=== PATIENT | male | born 1965 | race Caucasian/White ===

== ENCOUNTER 2018-10-07 14:09 | Inpatient (IN) | payer OTHER ==
[2018-10-07] VITALS (15 sets, daily range): BP systolic 97–130; BP diastolic 57–79
[~2018-10-07] VITALS: Ht 170.2 cm; Wt 84.4 kg
[2018-10-07] MEDS ORDERED: TOPROL XL25 MG PO (14:16)
[2018-10-07] MEDS ORDERED: IBU800 MG PO (14:16)
[2018-10-07] MEDS ORDERED: [UNRECOGNIZED DRUG - REMARK] (14:17)
[2018-10-07] MEDS ORDERED: MOBIC15 MG PO (14:17)
[2018-10-07 14:49] LABS: ABSOLUTE BASOPHILS 0.1 thou/uL (0.0-0.2); ABSOLUTE EOSINOPHILS 0.4 thou/uL (0.0-0.7); ABSOLUTE LYMPHOCYTES 2.6 thou/uL (0.8-5.3); ABSOLUTE MONOCYTES 0.6 thou/uL (0.0-1.2); ABSOLUTE NEUTROPHILS 5.4 thou/uL (1.6-8.1); BASOPHILS 1.1 %; EOSINOPHILS 4.5 %; HEMATOCRIT 46.7 % (42.0-52.0); MCH 31.4 pg (26.0-34.0); MCHC 34.3 g/dL (28.0-37.0); MCV 91.6 fL (80.0-100.0); MONOCYTES 6.6 %; MPV 8.8 fl. (7.2-11.1); NUCLEATED RBCS 0 /100WBC; PLATELET COUNT* 239 thou/uL (150-400); POLYS 58.8 %; RDW-CV 14.2 % (10.5-14.5); WBC 9.1 thou/uL (4.0-11.0)
[2018-10-07 14:53] LABS: ANION GAP 8 mmol/L (7-16); BUN 12 mg/dL (7-18); CALCIUM 8.8 mg/dL (8.5-10.1); CHLORIDE 103 mmol/L (98-107); CO2 26 mmol/L (21-32); CREATININE 1.1 mg/dL (0.6-1.3); GLUCOSE 117 mg/dL (70-99); POTASSIUM 3.8 mmol/L (3.5-5.1); SODIUM 137 mmol/L (136-145)
[2018-10-07 15:03] LABS: ALBUMIN 3.5 g/dL (3.4-5.0); ALKALINE PHOSPHATASE 108 U/L (46-116); SGOT 14 U/L (15-37); SGPT 27 U/L (30-65); TOTAL BILIRUBIN 0.2 mg/dL (<0.1-1.0); TOTAL PROTEIN 6.9 g/dL (6.4-8.2); TROPONIN-I LEVEL <0.06 ng/mL (<0.06)
--- NOTE | 2018-10-07 15:24 | EKG ---
[place] [address] ELECTROCARDIOGRAM REPORT Name: DOLORES ALEXANDER SR Room: [facility]#: [id number] Admission: 10/07/18 Attend Phys: Discharge: Date of : 61 Report #: [id number] THIS REPORT FOR: //name// [facility] ED Test Date: 2018-10-07 Test Time: 14:15:25 Pat Name: DOLORES ALEXANDER Department: Room: Gender: M Dub Room Engineer: MIO : 1965 Requested By: Marlin Jones Order Number: [id number] MD: Scot Figueroa Measurements Intervals [place] Rate: 78 P: 27 [place]: 188 QRS: 27 QRSD: 91 T: 41 QT: 367 QTc: 419 Interpretive Statements Sinus rhythm Compared to ECG 01/13/2007 07:59:23 No significant changes Electronically Signed On 10-07-2018 15:24:41 CDT by Scot Figueroa [email or web address] <ELECTRONICALLY SIGNED> By: Scot Figueroa MD, [facility] 10/07/18 1524 1415 1415 Scot Figueroa MD, [facility] /EPI
[2018-10-07 15:36] LABS: APTT 27.9 Seconds (25.0-31.3); INR 1.1; PROTIME 10.9 Seconds (9.20-11.50)
[2018-10-08] VITALS (13 sets, daily range): BP systolic 102–134; BP diastolic 65–85
[2018-10-08 03:42] LABS: HEMATOCRIT 45.9 % (42.0-52.0); HEMOGLOBIN 15.3 gm/dL (14.0-18.0); MCH 30.8 pg (26.0-34.0); MCHC 33.4 g/dL (28.0-37.0); MCV 92.1 fL (80.0-100.0); MPV 8.5 fl. (7.2-11.1); RBC 4.98 mil/uL (4.50-6.00); RDW-CV 14.1 % (10.5-14.5); WBC 12.1 thou/uL (4.0-11.0)
[2018-10-08 03:59] LABS: ANION GAP 12 mmol/L (7-16); BUN 12 mg/dL (7-18); CALCIUM 8.5 mg/dL (8.5-10.1); CHLORIDE 105 mmol/L (98-107); CHOLESTEROL 189 mg/dL (<200); CO2 24 mmol/L (21-32); CREATININE 1.1 mg/dL (0.6-1.3); GLUCOSE 112 mg/dL (70-99); HDL CHOLESTEROL 25 mg/dL (>40); LDL CHOLESTEROL 107 mg/dL (<100); MAGNESIUM 2.2 mg/dL (1.8-2.4); POTASSIUM 3.7 mmol/L (3.5-5.1); SODIUM 141 mmol/L (136-145); TC:HDL 7.6 Ratio (Not establshd); TRIGLYCERIDE 289 mg/dL (<150); VLDL 58 mg/dL (<40)
[2018-10-08 04:01] LABS: SERUM ASSESSMENT CLEAR
[2018-10-08 04:06] LABS: CK-MB MASS 7.6 ng/mL (<0.5-3.6)
[2018-10-08 04:11] LABS: TROPONIN-I LEVEL 1.5 ng/mL (<0.06)
[2018-10-08] MEDS ORDERED: LIPITOR40 MG PO (07:24)
[2018-10-08] MEDS ORDERED: ASPIR 8181 MG PO (07:24)
[2018-10-08] MEDS ORDERED: BRILINTA90 MG PO (07:24)
[2018-10-08] MEDS ORDERED: XANAX1 MG PO ×2 (08:51→11:06)
--- NOTE | 2018-10-08 09:16 | CARD ---
[address] [address] CARDIAC CATH REPORT Name: DOLORES ALEXANDER SR Room: [address] IN [facility]#: [id number] Admission: 10/07/18 Attend Phys: Sukhwinder Sanchez MD Discharge: Date of : 61 Report #: [id number] THIS REPORT FOR: //name// APPROVED REPORT Study performed: 10/07/2018 17:49:58 Patient Details Patient Status: ED Room #: The patient is a 52 year-old male Event Personnel Nicole Santiago Schmalzbach, Brittany RN RN, Eddie Briseno (R) Pattie Ramos Jin Production Graphic Designer Procedures Performed Left Heart Cath w/or w/o Coronaries [id number] [facility] Art Access - R femoral artery* BYRON Revasc AMI Total/Sub Single LAD C9606 AMIREVSING PTCA Single Vessel DIAG [id number] PCISINGLE , Aortogram Indication STEMI (>0 to less than or equal to 6 hours), Dyspnea, Chest pain Risk Factors Hypercholesterolemia, Coronary Artery DiseaseHypertension, Tobacco History () Previous Procedures/Diagnoses Previous PCI Procedure Narrative The patient was brought emergently to the Cardiac Catheterization Laboratory and was prepped and draped in a sterile manner. The right femoral was infiltrated with 2% Lidocaine subcutaneous anesthesia. A 6fr Ultimum Sheath sheath was inserted into the right femoral artery. Coronary angiography was performed using coronary diagnostic catheters. The right coronary system was accessed and visualized with a Diagnostic catheter. The left coronary system was accessed and visualized with a Diagnostic catheter. The left ventricle was accessed and visualized with a Diagnostic catheter. Left ventricular/Aortic Valve gradient assessed via catheter pullback. Closure device was deployed with a 6 Fr Mynx 6Fr/7[place] [address] CARDIAC CATH REPORT Name: DOLORES ALEXANDER SR Room: [address]#: [id number] Admission: 10/07/18 Attend Phys: Sukhwinder Sanchez MD Discharge: Date of : 61 Report #: [id number] tolerated the procedure well and there were no complications associated with the procedure. There was no hematoma. Intraoperative Conscious Sedation No Sedation given. Fluoro Time: 10.9 minutes Contrast Type and Amount: Visipaque 355 ml Coronary Angiography The patient's coronary anatomy is co- dominant. Diagnostic Cath Left Main This is a large caliber vessel, patent with no flow-limiting lesions. LAD There is a severe, discrete stenosis in the mid segment, 99% with BETH 2 blood flow. Diagonal 1 There is a small-caliber vessel, with an ostial stenosis of 90%. This vessel originates from the site of the LAD stenosis. Circumflex This is a codominant vessel, with mild disease proximally. There is a stent in the distal segment, patent with mild to moderate restenosis. OM1 There is mild disease in the proximal segment, 30%. OM2 This is a patent vessel, with no flow-limiting lesions. OM3 This is a patent vessel, with no flow-limiting lesions. Right Coronary There is a moderate stenosis in the mid segment, 50%. R PDA This is a patent vessel, with no flow-limiting lesions. Left Ventriculography The left ventricle is normal in size with abnormal contractility. The left ventricular ejection fraction is estimated to be 50%. There is hypokinesis of the apical segment. Hemodynamics The aortic pressure is 121/65 mmHg with a mean of 92 mmHg. The left ventricular end diastolic pressure is 14 mmHg. There was no gradient across the aortic valve upon pullback. PCI Technique Lesion Anticoagulation was achieved with Angiomax. Patient was preloaded with Brilinta. Percutaneous coronary intervention was performed on the mid left anterior descending artery segment. The lesion stenosis prior to intervention was 99% with BETH 2 flow. A 6FR JL 4.0 [place] [address] CARDIAC CATH REPORT Name: DOLORES ALEXANDER SR Room: [address] IN [facility]#: [id number] Admission: 10/07/18 Attend Phys: Sukhwinder Sanchez MD Discharge: Date of : 61 Report #: [id number] Catheter was used to engage the ostium. A MELANI: Luge Wire 180 Interventional Guidewire was used to cross the lesion. BALLOON DILATION A Balloon catheter Trek RX 2.5 X 12 was inserted and inflated up to 8.00atm for 7seconds. Additional Inflation: 10.00atm for 14seconds. Additional Inflation: 10.00atm for 6seconds. STENT DEPLOYMENT A drug-eluting stent [place] RX Stent 2.76V07wv was inserted and inflated up to 14.00atm for 20seconds. POST STENT DEPLOYMENT BALLOON DILATION A Balloon catheter NC Trek RX 2.75 X 12 was inserted and inflated up to 18.00atm for 13seconds. Final angiography reveals 0 % stenosis with BETH 3 flow. PCI Technique Lesion 2 Percutaneous Coronary Intervention was performed on the first diagnonal branch segment. The lesion stenosis prior to intervention was 90% with BETH 2 flow. A 6FR JL 4.0 Guide Catheter was used to engage the ostium. A IG: ProwaterFlex 180CM Interventional Guidewire was used to cross the lesion. Balloon Dilation A Balloon catheter Mini Trek RX 2.0 X 12 was inserted and inflated up to 8.00atm for 6seconds. Additional Inflation: 12.00atm for 21seconds. Additional Inflation: 8.00atm for 10seconds. Final angiography reveals 45 % stenosis with BETH 3 flow. Conclusion 1. Successful insertion of a drug-eluting stent into the mid LAD stenosis. 2. POBA of a small first diagonal artery at the ostium. 3. Patent stent in the distal left circumflex artery with mild to moderate restenosis. 4. Moderate focal stenosis in the mid RCA segment. 5. Mild LV dysfunction. [address] [place] [address] CARDIAC CATH REPORT Name: DOLORES ALEXANDER Room: [address] IN M.R.#: [id number] Admission: 10/07/18 Attend Phys: Sukhwinder Sanchez MD Discharge: Date of : 61 Report #: [id number] 6. Recommend dual antiplatelet therapy and aggressive risk factor management <ELECTRONICALLY SIGNED> By: Eliseo Blankenship MD 10/08/18914 4 4Eliseo Blankenship MD /INF
--- NOTE | 2018-10-08 10:38 | EKG ---
[place] [address] ELECTROCARDIOGRAM REPORT Name: DOLORES ALEXANDER Room: [address] ADM IN .R.#: [id number] Admission: 10/07/18 Attend Phys: Sukhwinder Sanchez MD Discharge: Date of : 61 Report #: [id number] THIS REPORT FOR: //name// [facility] ED Test Date: 2018-10-07 Test Time: 17:39:25 Pat Name: DOLORES ALEXANDER Department: Room: [address] Gender: M Cashier Checker: : 1965 Requested By: Eliseo Blankenship Order Number: [id number] Monty MD: Winston Marcus Measurements Intervals [place] Rate: 37 P: 8 [place]: 226 QRS: 40 QRSD: 93 T: 70 QT: 411 QTc: 323 Interpretive Statements sinus rhythm with Mobitz I AV block Extensive anterior infarct, acute (LAD) Baseline wander in lead(s) II,aVR,V3 Electronically Signed On 10-08-2018 10:38:44 CDT by Winston Marcus [email or web address] <ELECTRONICALLY SIGNED> By: Winston Marcus MD, [facility] 10/08/18 1038 1739 1739 Winston Marcus MD, [facility] /EPI
--- NOTE | 2018-10-08 10:41 | EKG ---
[place] [address] ELECTROCARDIOGRAM REPORT Name: DOLORES ALEXANDER Room: [address] ADM IN [facility].#: [id number] Admission: 10/07/18 Attend Phys: Sukhwinder Sanchez MD Discharge: Date of : 61 Report #: [id number] THIS REPORT FOR: //name// [facility] ED Test Date: 2018-10-07 Test Time: 21:24:54 Pat Name: DOLORES ALEXANDER Department: Room: [facility] Gender: M Tool Lathe Operator: : 1965 Requested By: Marlin Jones Order Number: [id number] MD: Winston Marcus Measurements Intervals [place] Rate: 64 P: 10 DC: 198 QRS: 8 QRSD: 89 T: 18 QT: 410 QTc: 423 Interpretive Statements Sinus rhythm Compared to ECG 10/07/2018 14:15:25 No significant changes Electronically Signed On 10-08-2018 10:41:24 CDT by Winston Marcus [email or web address] <ELECTRONICALLY SIGNED> By: Winston Marcus MD, [facility] 10/08/18 1041 23 23 Winston Marcus MD, [facility] /EPI
--- NOTE | 2018-10-08 10:43 | EKG ---
[place] [address] ELECTROCARDIOGRAM REPORT Name: DOLORES ALEXANDER Room: [address] ADM IN .R.#: [id number] Admission: 10/07/18 Attend Phys: Sukhwinder Sanchez MD Discharge: Date of : 61 Report #: [id number] THIS REPORT FOR: //name// [facility] Test Date: 2018-10-08 Test Time: 08:19:46 Pat Name: DOLORES ALEXANDER Department: Room: [address] Gender: M Choir Member: : 1965 Requested By: Eliseo Blankenship Order Number: [id number] MD: Winston Marcus Measurements Intervals [place] Rate: 72 P: 9 [place]: 181 QRS: 19 QRSD: 89 T: 24 QT: 384 QTc: 421 Interpretive Statements Sinus rhythm Abnormal R-wave progression, early transition Compared to ECG 10/07/2018 14:15:25 No significant changes Electronically Signed On 10-08-2018 10:42:46 CDT by Winston Marcus [email or web address] <ELECTRONICALLY SIGNED> By: Winston Marcus MD, [facility] 10/08/18 1042 8 8 Winston Marcus MD, [facility] /EPI
[2018-10-08] MEDS ORDERED: PLAVIX 75 MG TA75 M1 PO (11:04)
[2018-10-08] MEDS ORDERED: NITROGLYCERIN0.4 MG SUBLING (11:15)
[2018-10-08] MEDS ORDERED: NICOTINE TRANSD21 M1 (11:16)
[2018-10-08] MEDS ORDERED: TYLENOL325 MG PO (11:18)
[2018-10-08] MEDS ORDERED: MOBIC15 MG PO (11:19)
[2018-10-08] MEDS ORDERED: IBUPROFEN 800800 M1 PO (11:19)
--- NOTE | 2018-10-09 08:26 | CON ---
[address] [address] CONSULTATION Name: DOLORES ALEXANDER SR Room: [address]#: [id number] Admission: 10/07/18 Attend Phys: Sukhwinder Sanchez MD Discharge: 10/08/18 Date of : 61 Report #: [id number] THIS REPORT FOR: //name// CC: Sagrario Sanchez DATE OF SERVICE: 10/07/2018 CARDIOLOGY CONSULTATION INDICATION: Chest pain. HISTORY OF PRESENT ILLNESS: This is a 52-year-old gentleman with a history of CAD; PCI, hypercholesterolemia and chronic tobacco use, presenting with chest pains. For the past several days, he has been experiencing chest pain with exertion. Today, he was coming home from work when he developed chest pains and came to the ER for an evaluation at [facility]. The initial ECG reveals sinus rhythm. He was admitted to the hospital. While in the ER, he had recurrent chest pains with a repeat EKG showing ST segment elevation in the anterior leads. He was treated with aspirin, Brilinta and heparin. There is no history of vomiting, diarrhea, fever, chills or cough. PAST MEDICAL HISTORY: CAD with stent to the distal circumflex in 2006. Had low blood pressure and lisinopril was discontinued. History of hypercholesterolemia. ALLERGIES: PENICILLIN. MEDICATIONS: Include rosuvastatin 20 mg daily, metoprolol 25 mg. SOCIAL HISTORY: Positive tobacco use, one pack per day. FAMILY HISTORY: Negative for premature CAD. REVIEW OF SYSTEMS: A full 10-point review of systems performed. Only the pertinent positives and negatives are described in the HPI. PHYSICAL EXAMINATION: VITAL SIGNS: Blood pressure is 110/60, heart rate is 70 beats per minute. GENERAL APPEARANCE: This is a well-developed, well-nourished male in no acute respiratory distress. HEENT: Normocephalic, atraumatic. Oral mucosa moist. NECK: Supple. LUNGS: Clear to auscultation. CARDIAC: Regular rate and rhythm, S1, [place] [address] CONSULTATION Name: DOLORES ALEXANDER SR Room: [address]#: [id number] Admission: 10/07/18 Attend Phys: Sukhwinder Sanchez MD Discharge: 10/08/18 Date of : 61 Report #: [id number] ABDOMEN: Soft, nontender. EXTREMITIES: No cyanosis, no edema. NEUROLOGIC: Alert and oriented x 3. LABORATORY VALUES: Pending. ECG #1 reveals sinus rhythm, nonspecific T-wave abnormalities. EKG #2 reveals sinus rhythm with probable Wenckebach block and ST elevation in the precordial leads. ASSESSMENT AND PLAN: 1. Unstable angina, status post acute anterior wall myocardial infarction, the patient was treated with aspirin, Brilinta and heparin. He will be taken emergently to the cardiac cathode builder. 2. Tobacco use, complete smoking cessation is advised. 3. Hypercholesterolemia, tolerating rosuvastatin, denies any myalgias. <ELECTRONICALLY SIGNED> By: Eliseo Blankenship MD 10/09/18 0826 [id number] Blankenship MD /nt
== END 2018-10-08 17:12 | disposition home or self-care (01) | DRG 247 ==
LOC: M.ERS 14:09 → M.TBA-ER 16:51 → M.ICU 16:51
PROVIDERS: Internal Medicine Cardiovascular Disease; Personal Emergency Response Attendant; ADMIT Internal Medicine
PROC: 027034Z Dilation of Coronary Artery, One Artery with Drug-eluting Intraluminal Device, Percutaneous Approach (ICD-10-PCS; principal; 2018-10-08)
PROC: B211YZZ Fluoroscopy of Multiple Coronary Arteries using Other Contrast (ICD-10-PCS; principal; 2018-10-08)
PROC: 4A023N7 Measurement of Cardiac Sampling and Pressure, Left Heart, Percutaneous Approach (ICD-10-PCS; principal; 2018-10-08)
DX: I21.3 ST elevation (STEMI) myocardial infarction of unspecified site (principal); I25.110 Atherosclerotic heart disease of native coronary artery with unstable angina pectoris; I10 Essential (primary) hypertension; E78.00 Pure hypercholesterolemia, unspecified; J44.9 Chronic obstructive pulmonary disease, unspecified; F17.210 Nicotine dependence, cigarettes, uncomplicated; E78.5 Hyperlipidemia, unspecified; I25.5 Ischemic cardiomyopathy; Z95.5 Presence of coronary angioplasty implant and graft; Z88.0 Allergy status to penicillin; Z71.6 Tobacco abuse counseling; Z79.82 Long term (current) use of aspirin; Z79.899 Other long term (current) drug therapy